=== PATIENT | female | born 1990 | race Caucasian/White ===

== ENCOUNTER 2017-03-01 06:52 | Inpatient (IN) | payer OTHER ==
[2017-03-01] MEDS ORDERED: Sodium Citrate/Citric Acid 15 ml Sol PO ONE (08:13)
[2017-03-01 08:15] LABS: BASO # 0.1 K/uL (0.0-0.2); BASO % 0.5 % (0.0-2.0); EOS # 0.1 K/uL (0.0-0.7); EOS % 0.6 % (0.0-4.0); HEMOGLOBIN 10.5 g/dL (11.0-16.0); LYMPH # 3.1 K/uL (1.0-4.3); LYMPH % 31.3 % (20.0-40.0); MEAN CORPUSCULAR HEMOGLOBIN 29.9 pg (27.0-31.0); MEAN CORPUSCULAR HGB CONC 32.6 g/dL (33.0-37.0); MEAN PLATELET VOLUME 9.5 fL (7.2-11.7); MONO # 1.3 K/uL (0.0-0.8); MONO % 13.1 % (0.0-10.0); NEUT # 5.4 K/uL (1.8-7.0); NEUT % 54.5 % (50.0-75.0); NRBC % 0.1 % (0.0-2.0); RBC 3.51 Mil/uL (3.80-5.20); RED CELL DISTRIBUTION WIDTH 13.4 % (11.5-14.5)
[2017-03-01] MEDS ORDERED: Oxytocin 20 units in LR 2,000 ML IV ONE (08:18)
[2017-03-01 08:19] LABS: SQUAMOUS EPITHIAL 33 /hpf (0-5); URINE BACTERIA OCC (<OCC); URINE BILIRUBIN NEGATIVE (NEGATIVE); URINE BLOOD NEGATIVE (NEGATIVE); URINE CLARITY Hazy (Clear); URINE COLOR Yellow (YELLOW); URINE GLUCOSE (UA) NORMAL (Normal); URINE LEUKOCYTE ESTERASE 3+ Leu/uL (Negative); URINE NITRATE NEGATIVE (NEGATIVE); URINE PROTEIN NEGATIVE (NEGATIVE); URINE UROBILINOGEN NORMAL mg/dL (0.2-1.0)
[2017-03-01] MEDS: Lactated Ringer's 1,000 ML IV SCH ×2 (08:27→17:00)
[2017-03-01 08:45] LABS: ALBUMIN 3.2 g/dL (3.5-5.0)
[2017-03-01 08:48] LABS: AST/SGOT 39 U/L (14-36); BLOOD UREA NITROGEN 7 mg/dL (7-17); GFR AFRICAN-AMERICAN > 60; GFR NON-AFRICAN AMERICAN > 60
[2017-03-01 08:49] LABS: ALT/SGPT 36 U/L (9-52)
[2017-03-01] MEDS ORDERED: Morphine 1 mg/ml preservative-free Inj(Duramorph) ONE (08:57)
[2017-03-01 08:59] LABS: BARBITURATES, UR NEGATIVE (NEGATIVE)
[2017-03-01 09:00] LABS: BENZODIAZEPINES, UR NEGATIVE (NEGATIVE)
[2017-03-01 09:04] LABS: OPIATES, UR NEGATIVE (NEGATIVE)
[2017-03-01 09:05] LABS: PHENCYCLIDINE, UR NEGATIVE (NEGATIVE)
[2017-03-01] MEDS ORDERED: Phenylephrine 10 mg/ml Inj ONE (09:24)
[2017-03-01] MEDS ORDERED: ePHEDrine 50 mg/ml Inj ONE (09:24)
[2017-03-01] MEDS ORDERED: DiphenhydrAMINE 50 mg/ml Inj IVP PRN (09:51)
[2017-03-01] MEDS ORDERED: Oxycodone/Acetaminophen 5/325 mg Tab PO PRN (10:32)
[2017-03-01] MEDS: Simethicone 80 mg Chewtab PO SCH ×2 (17:33→22:40)
[2017-03-02] MEDS: Lactated Ringer's 1,000 ML IV SCH (01:12)
--- NOTE | 2017-03-02 05:15 | OBDS ---
DELIVERY PERSONNEL Delivery Doctor: Yael Bustillo MD Scrub Nurse: Chetna Whitfield Instrument Adjuster: Marilyn Fuller RN Anesthesiologist: sanjeev MATERNAL INFORMATION Delivery Anesthesia: Spinal Medications in Delivery: pitocin 20 Estimated Blood Loss (ml): 800 Placenta Cultured: Yes Maternal Complications: None Provider Comments: repeat csection done ebl 800cc viable male .apgars 9/9 at 1 and 5 min of life LABOR SUMMARY EDC: 03/07/2017 00:00 No. Babies in Womb: 1 Attempted: No Labor Anesthesia: None LABOR INFORMATION Reason for Induction: Not Applicable Oxytocin: N/A Group B Beta Strep: Negative Antibiotics # of Doses: 2 Antibiotics Time of Last Dose: 840 Steroids Given: None Reason Steroids Not Administered: Not Applicable MEMBRANES Membranes Rupture Method: Artificial Rupture of Membranes: 03/01/2017 09:32 Length of Rupture (hrs): 0.02 Amniotic Fluid Color: Clear Amniotic Fluid Amount: Moderate Amniotic Fluid Odor: Normal STAGES OF LABOR Stage 3 hrs: 0 Stage 3 min: 1 VAGINAL DELIVERY Episiotomy: None Laceration Extension: N/A Laceration Type: None CSECTION DELIVERY Primary Indication: Repeat Elective Secondary Indication: N/A CSection Urgency: Elective CSection Incidence: Repeat Labor: No Labor Elective: Elective CSection Incision: Lower Uterine Transverse Uterine Closure: Double-layer closure BABY A INFORMATION Infant Delivery Date/Time: 03/01/2017 09:33 Method of Delivery: Born in Route : No : N/A Forceps: N/A Vacuum Extraction: N/A Shoulder Dystocia : No SHOULDER DYSTOCIA BABY A Infant Delivery Date/Time: 03/01/2017 09:33 PRESENTATION/POSITION BABY A Presentation: Cephalic Cephalic Presentation: Vertex Breech Presentation: N/A PLACENTA INFORMATION BABY A Placenta Delivery Time : 03/01/2017 09:34 Placenta Method of Delivery: Manual Removal Placenta Status: Delivered SCORES BABY A Heart Rate 1 min: >100 bpm Resp Effort 1 min: Good Cry Reflex Irritability 1 min: Cough or Sneeze or Pulls Away Muscle Tone 1 min: Active Motion Color 1 min: Body [place], Extremities Blue Resuscitation Effort 1 min: Tactile Stimulation SCORE 1 MIN: 9 Heart Rate 5 min: >100 bpm Resp Effort 5 min: Good Cry Reflex Irritability 5 min: Cough or Sneeze or Pulls Away Muscle Tone 5 min: Active Motion Color 5 min: Body [place], Extremities Blue SCORE 5 MIN: 9 INFANT INFORMATION BABY A Gestational Age at Delivery: 39.0 Gestational Status: Term Outcome : Liveborn Infant Condition : Stable Infant Sex: Male IDENTIFICATION/MEDS BABY A ID Band Number: [id number] ID Band Location: Left Leg; Left Arm Sensor Applied: Yes Sensor Number: [id number] Sensor Location : Cord Clamp WEIGHT/LENGTH BABY A Infant Birthweight (gms): 3320 Infant Weight (lb): 7 Weight (oz): 5 Infant Length Inches: 19.75 Infant Length cms: 50.2 CORD INFORMATION BABY A No. Cord Vessels: 3 Nuchal Cord : N/A Cord Blood Taken: Yes Infant Suction: Mouth; Nose ASSESSMENT BABY A Complications: None Physical Findings at Delivery: Within Normal Limits Respirations: Appears Normal Products Mechanical Design Engineer/ALS Called : No Care By: dr esteves Transferred To: Remains with Mother
[2017-03-02] MEDS: Oxycodone/Acetaminophen 5/325 mg Tab PO PRN ×5 (06:45→20:25)
[2017-03-02 08:11] LABS: BASO # 0.1 K/uL (0.0-0.2); BASO % 0.7 % (0.0-2.0); EOS # 0.1 K/uL (0.0-0.7); EOS % 0.5 % (0.0-4.0); HEMOGLOBIN 9.6 g/dL (11.0-16.0); LYMPH # 2.1 K/uL (1.0-4.3); LYMPH % 15.2 % (20.0-40.0); MEAN CELL VOLUME 91.6 fL (81.0-99.0); MEAN CORPUSCULAR HEMOGLOBIN 29.7 pg (27.0-31.0); MEAN CORPUSCULAR HGB CONC 32.4 g/dL (33.0-37.0); MEAN PLATELET VOLUME 8.8 fL (7.2-11.7); MONO # 1.9 K/uL (0.0-0.8); MONO % 13.4 % (0.0-10.0); NEUT # 9.8 K/uL (1.8-7.0); NEUT % 70.2 % (50.0-75.0); NRBC % 0.1 % (0.0-2.0); RBC 3.23 Mil/uL (3.80-5.20); RED CELL DISTRIBUTION WIDTH 13.4 % (11.5-14.5); WHITE BLOOD COUNT 13.9 K/uL (4.8-10.8)
[2017-03-02] MEDS: Prenatal Multivit/Folic Acid/Iron Tab PO SCH (09:58)
[2017-03-02] MEDS: Simethicone 80 mg Chewtab PO SCH ×4 (09:58→21:55)
--- NOTE | 2017-03-02 14:49 | OP ---
PROCEDURE DATE: 03/01/2017 PREOPERATIVE DIAGNOSES: In term intrauterine , previous infection, trial of labor. POSTOPERATIVE DIAGNOSES: In term intrauterine , previous section, trial of labor. SURGEON: Keshawn Bustillo MD ICT EDUCATOR: Fuentes Farris MD. Please note that the procedure required a surgical tech to assist with entry into the abdominal cavity, to assist with the delivery of the , and also to assist with closure of the abdominal wall. The surgical tech was present and scrubbed for the entire duration of the procedure. PROCEDURE PERFORMED: Repeat low transverse section. ANESTHESIA: Spinal. ANESTHESIOLOGIST: Dr. Llamas. COMPLICATIONS: None. ESTIMATED BLOOD LOSS: 800 mL FINDINGS: Viable male infant in a vertex presentation with Apgars of 9 at 1 minute and 9 at 5 minutes. Normal appearing tubes and ovaries bilaterally. Lesions within the omentum and the anterior wall of the uterus were noted. SPECIMENS: Placenta and cord blood. PROCEDURE IN DETAIL: After informed consent was obtained, the patient was taken to the operating room and spinal anesthesia was administered by the Anesthesia Team. She was thereafter placed in dorsal supine position with a leftward tilt. A Vasquez catheter was placed transurethrally using sterile precaution. She was then prepped and draped in the usual sterile manner. In the previous scar, incision was made and incision was carried down to the underlying layer of the fascia with the help of the Bovie. The fascia was then incised in the midline. The incision was extended laterally with the help of Bovie as well. The superior aspect of the fascial incision was then grasped with David clamps, elevated, and the underlying rectus muscles were dissected off. Attention was then turned to the inferior aspect of the fascial incision, which in a similar fashion was grasped with David clamp, elevated, and the underlying rectus muscles dissected off. The rectus muscles were then tented up, lifted up in the midline with the help of Allis clamps and sharply with the help of the scalpel. The peritoneum was also picked up with hemostatic clamps and entered sharply. The peritoneal incision was then extended superiorly and inferiorly with good visualization of the bladder. The bladder blade was inserted and the vesicouterine peritoneum was identified. A transverse incision was made over the vesicouterine peritoneum and this incision was extended laterally sharply as well. The live baby within the incision over the uterine segment identified. A transverse incision was made over the lower uterine segment with the help of a scalpel. The hysterotomy was then also stretched bluntly. The membranes were then ruptured and clear amniotic fluid was noted. The head was delivered followed by the body and shoulders. The nose and mouth were suctioned and the cord was then clamped and cut. The infant was then handed over to the waiting middleware developer. The placenta was then manually removed. The uterus was exteriorized and cleared of all clots and debris. Uterine incision was repaired with 0 Polysorb in a running locked fashion. Second layer of same suture was used to imbricate the first layer and also to obtain hemostasis. Adequate hemostasis was noted at the uterine incision repair site. Adhesions between the omentum and the anterior abdominal wall of the uterus were noted. These were doubly clamped then cut *------* and then suture ligated. Adequate hemostasis was noted from the cut edges of the omentum. The pelvis and gutters were irrigated and suctioned. The uterus was returned to the patient's abdomen and the hysterotomy was inspected for hemostasis. Again, bleeding was noted on the mid section of the hysterotomy repair, and then this was suture ligated with 0 Monocryl with [id number] sutures. Adequate hemostasis was noted from the uterine incision repair site. The bladder flap was inspected for hemostasis, and adequate hemostasis was noted from it as well. The peritoneum was therefore closed with 2-0 Polysorb in running fashion. The muscle area was also re-approximated with 2-0 Polysorb in running fashion. The fascia was closed with 0-Vicryl in a running fashion. The subcutaneous tissue was re-approximated with 2-0 Polysorb in running fashion. The skin was then closed with lou. Sponge, lap, needle, and instrument counts were correct at the end of the procedure as reported to me. The Vasquez catheter was left in situ for postop bladder drainage. The patient was cleaned, dressing was applied, and taken to the recovery room in stable condition. Keshawn Bustillo MD
--- NOTE | 2017-03-02 15:42 | OBPPN ---
Datetime: 03/02/2017 15:31 PP Pain Prov: Within normal limits PP Nausea Prov: Denies PP Flatus Prov: No PP BM Prov: No PP Breasts Prov: Normal PP Heart Prov: Normal PP Lungs Prov: Normal PP Abdomen/Uterus Prov: Normal PP Lochia Prov: Normal PP Vulva/Perineum Prov: Not Done PP CVA Tenderness Prov: Normal PP Extremities Prov: Normal PP C/S Incision Prov: Normal PP Progress Prov: Normal PP Comments Phys Exam Prov: Abdomen: Obese. (+) BS. Fundus firm, appropriately tender at umbilicus, mobile. Dressing - clean and dry. Mild lochia rubra Extremities: no calf tenderness All other systems reviewed and are negative PP Impression Prov: Normal progression PP Plan Prov: Continue present management PP Progress Note Prov: Patient received in room 451, at sink, brushing her teeth; ambulated to bed. (+) Breast- and bottlefeeidng. Denies nausea, vomiting; (+) hungry. Denies dizziness, lighteheadedne ss. Pain scale in incision 8/10 - relieved by percocot P.E.: as above. Obese, in NAD. Awake, alert, oriented to time, person and place. Pleasant and coop erative - POD#1 H/H 9.6/ 29.6. RH (+) Assessment: POD#1, 26 yo P2, S/P repeat C/S. Afebrile, vital signs stable. Chronic anemia - asymt omatic and hemodynamically stable. Returning GI and functions. Drug screen (+) cannibinoids; Socia l work consult has been placed. Clincally stable. Plan: 1) Encourage ambulation in hallway 2) Advance to regualr diet 3) Continue present management 3) Vital Signs Provider PP: Reviewed; Within Normal Limits
--- NOTE | 2017-03-02 15:47 | OBPPN ---
Datetime: 03/02/2017 15:31 PP Progress Note Prov: Patient received in room 451, at approximately 0740 hours - at sink, brushing her teeth; ambulated to bed. (+) Breast- and bottlefeeding. Denies nausea, vomiting; (+) hungry. De nies dizziness, lightheadedness. Pain scale in incision 8/10 - relieved by percocet P.E.: as above. Obese, in NAD. Awake, alert, oriented to time, person and place. Pleasant and coop erative - POD#1 H/H 9.6/ 29.6. RH (+) Assessment: POD#1, 26 yo P2, S/P repeat C/S. Afebrile, vital signs stable. Chronic anemia - asymt omatic and hemodynamically stable. Returning GI and functions. Drug screen (+) cannibinoids; Socia l work consult has been placed. Clincally stable. Plan: 1) Encourage ambulation in hallway 2) Advance to regualr diet 3) Continue present management
[2017-03-03] MEDS: Oxycodone/Acetaminophen 5/325 mg Tab PO PRN ×3 (00:18→17:17)
--- NOTE | 2017-03-03 07:24 | OBPPN ---
Datetime: 03/03/2017 07:20 PP Pain Prov: Within normal limits PP Nausea Prov: Denies PP Flatus Prov: Yes PP Abdomen/Uterus Prov: Normal PP Lochia Prov: Normal PP Extremities Prov: Normal PP C/S Incision Prov: Normal PP Comments Phys Exam Prov: fudus below um ext mild edema,no calf ten incision clean and dry PP Impression Prov: Normal progression PP Plan Prov: Continue present management PP Progress Note Prov: pt was seen at bed side, pain under control, no n/v, tolerating deit,voiding, min lochia, flatus + pod#2 s/p c/s cbc reg deit pain management cont post op care encourage ambulation care Vital Signs Provider PP: Reviewed; Within Normal Limits
[2017-03-03] MEDS: Prenatal Multivit/Folic Acid/Iron Tab PO SCH (09:18)
[2017-03-03] MEDS: Simethicone 80 mg Chewtab PO SCH ×5 (09:19→21:56)
[2017-03-03] MEDS ORDERED: Hydrocortisone 1% Cream (30 GM) TOP PRN ×2 (11:12→11:14)
[2017-03-04] MEDS ORDERED: Hydrocortisone 1% Cream (30 GM) TOP PRN (01:57)
[2017-03-04 08:04] VITALS: BP 129/79; PULSE 88; RESP 18; TEMP 98.9; O2SAT 97
--- NOTE | 2017-03-04 08:46 | CP.PCM.DIS ---
Provider - Provider Date of Admission: 03/01/17 07:15 Attending physician: Keshawn Bustillo MD Time Spent in preparation of Discharge (in minutes): 45 Hospital Course - Lab Results Lab Results: Most Recent Lab Values WBC 13.9 K/uL (4.8-10.8) H 03/02/17 08:03 RBC 3.23 Mil/uL (3.80-5.20) L 03/02/17 08:03 Hgb 9.6 g/dL (11.0-16.0) L 03/02/17 08:03 Hct 29.6 % (34.0-47.0) L 03/02/17 08:03 MCV 91.6 fL (81.0-99.0) 03/02/17 08:03 MCH 29.7 pg (27.0-31.0) 03/02/17 08:03 MCHC 32.4 g/dL (33.0-37.0) L 03/02/17 08:03 RDW 13.4 % (11.5-14.5) 03/02/17 08:03 Plt Count 182 K/uL (130-400) 03/02/17 08:03 MPV 8.8 fL (7.2-11.7) 03/02/17 08:03 Neut % (Auto) 70.2 % (50.0-75.0) 03/02/17 08:03 Lymph % (Auto) 15.2 % (20.0-40.0) L 03/02/17 08:03 [place] % (Auto) 13.4 % (0.0-10.0) H 03/02/17 08:03 Eos % (Auto) 0.5 % (0.0-4.0) 03/02/17 08:03 Baso % (Auto) 0.7 % (0.0-2.0) 03/02/17 08:03 Neut # 9.8 K/uL (1.8-7.0) H 03/02/17 08:03 Lymph # 2.1 K/uL (1.0-4.3) 03/02/17 08:03 [place] # 1.9 K/uL (0.0-0.8) H 03/02/17 08:03 Eos # 0.1 K/uL (0.0-0.7) 03/02/17 08:03 Baso # 0.1 K/uL (0.0-0.2) 03/02/17 08:03 Sodium 135 mmol/L (132-148) 03/01/17 08:07 Potassium 3.9 mmol/L (3.6-5.2) 03/01/17 08:07 Chloride 101 mmol/L (98-107) 03/01/17 08:07 Carbon Dioxide 22 mmol/L (22-30) 03/01/17 08:07 Anion Gap 16 (10-20) 03/01/17 08:07 BUN 7 mg/dL (7-17) 03/01/17 08:07 Creatinine 0.6 MG/DL (0.7-1.2) L 03/01/17 08:07 Est GFR ( Amer) > 60 03/01/17 08:07 Est GFR (Non-Af Amer) > 60 03/01/17 08:07 Random Glucose 69 mg/dL (65-105) 03/01/17 08:07 Calcium 9.0 mg/dl (8.6-10.4) 03/01/17 08:07 Total Bilirubin 0.7 mg/dL (0.2-1.3) 03/01/17 08:07 AST 39 U/L (14-36) H 03/01/17 08:07 ALT 36 U/L (9-52) 03/01/17 08:07 Alkaline Phosphatase 147 U/L (38-126) H 03/01/17 08:07 Total Protein 6.4 g/dL (6.3-8.3) 03/01/17 08:07 Albumin 3.2 g/dL (3.5-5.0) L 03/01/17 08:07 Globulin 3.3 gm/dL (2.2-3.9) 03/01/17 08:07 Albumin/Globulin Ratio 1.0 (1.0-2.1) 03/01/17 08:07 Urine Color Yellow (YELLOW) 03/01/17 08:07 Urine Clarity Hazy (Clear) 03/01/17 08:07 Urine pH 7.0 (5.0-8.0) 03/01/17 08:07 Ur Specific [place] 1.013 (1.003-1.030) 03/01/17 08:07 Urine Protein Negative mg/dL (NEGATIVE) 03/01/17 08:07 Urine Glucose (UA) Normal mg/dL (Normal) 03/01/17 08:07 Urine Ketones 1+ mg/dL (NEGATIVE) H 03/01/17 08:07 Urine Blood Negative (NEGATIVE) 03/01/17 08:07 Urine Nitrate Negative (NEGATIVE) 03/01/17 08:07 Urine Bilirubin Negative (NEGATIVE) 03/01/17 08:07 Urine Urobilinogen Normal mg/dL (0.2-1.0) 03/01/17 08:07 Ur Leukocyte Esterase 3+ Ben/uL (Negative) H 03/01/17 08:07 Urine WBC (Auto) 8 /hpf (0-5) H 03/01/17 08:07 Urine RBC (Auto) 3 /hpf (0-3) 03/01/17 08:07 Ur Squamous Epith Cells 33 /hpf (0-5) H 03/01/17 08:07 Urine Bacteria Occ (<OCC) H 03/01/17 08:07 Urine Opiates Screen Negative (NEGATIVE) 03/01/17 08:40 Urine Methadone Screen Negative (NEGATIVE) 03/01/17 08:40 Ur Barbiturates Screen Negative (NEGATIVE) 03/01/17 08:40 Ur Phencyclidine Scrn Negative (NEGATIVE) 03/01/17 08:40 Ur Amphetamines Screen Negative (NEGATIVE) 03/01/17 08:40 U Benzodiazepines Scrn Negative (NEGATIVE) 03/01/17 08:40 U Oth Cocaine Metabols Negative (NEGATIVE) 03/01/17 08:40 U Cannabinoids Screen Positive (NEGATIVE) 03/01/17 08:40 RPR Nonreactive (NONREACTIVE) 03/01/17 08:07 HIV 1&2 Antibody Screen Negative (NEGATIVE) 03/01/17 08:07 Blood Type A POSITIVE 03/01/17 08:07 Antibody Screen Negative 03/01/17 08:07 Discharge Plan - Follow Up Plan Condition: GOOD Disposition: HOME/ ROUTINE
--- NOTE | 2017-03-04 08:50 | OBPPN ---
Datetime: 03/04/2017 08:47 PP Pain Prov: Within normal limits PP Nausea Prov: Denies PP Flatus Prov: Yes PP Breasts Prov: Normal PP Heart Prov: Normal PP Lungs Prov: Normal PP Abdomen/Uterus Prov: Normal PP Lochia Prov: Normal PP Vulva/Perineum Prov: Normal PP CVA Tenderness Prov: Normal PP Extremities Prov: Normal PP C/S Incision Prov: Normal PP Progress Prov: Normal PP Comments Phys Exam Prov: Abd: Soft, NT, BS- present Ut- Firm. Incision: Clean and dry PP Impression Prov: Normal progression PP Plan Prov: Discharge PP Progress Note Prov: S/P Section, POD #3 Clinically Stable. Plan: D/C Home Vital Signs Provider PP: Reviewed
--- NOTE | 2017-03-04 08:58 | OBDCSUM ---
Datetime: 03/04/2017 08:55 Discharged to, Provider: Home Follow up at, Provider[facility] Disch Instr Activity: Normal activity Disch Instr Diet: Regular Discharge Instructions, Provider: Routine instructions given Discharge Diagnosis, Provider: Term Delivered Discharge Time: 03/04/2017 08:55 Follow up in weeks, Provider: 1 week Disch Referrals: None Contraception discussed, Prov: Yes Discharge Comment, Provider: S/P Section, Clinically Stable Discharge Diagnosis Prov Other: S/P Section, Clinically Stable
[2017-03-04] MEDS: Prenatal Multivit/Folic Acid/Iron Tab PO SCH (09:55)
== END 2017-03-04 15:40 | disposition home or self-care (01) | DRG 370 ==
LOC: UNDOADMIN 06:52 → C.4D 06:52 → EEVIPCON 07:15 → C.4D 07:15 → C.4M 12:07
PROVIDERS: ADMIT Student in an Organized Health Care Education/Training Program; ATTEND Student in an Organized Health Care Education/Training Program
PROC: 10D00Z1 Extraction of Products of Conception, Low, Open Approach (ICD-10-PCS; principal; 2017-03-01)
PROC: 10907ZC Drainage of Amniotic Fluid, Therapeutic from Products of Conception, Via Natural or Artificial Opening (ICD-10-PCS; 2017-03-01)
DX: O34.211 Maternal care for low transverse scar from previous cesarean delivery (principal); O99.02 Anemia complicating childbirth; O99.323 Drug use complicating pregnancy, third trimester; O99.214 Obesity complicating childbirth; K66.0 Peritoneal adhesions (postprocedural) (postinfection); F12.10 Cannabis abuse, uncomplicated; Z37.0 Single live birth; Z3A.39 39 weeks gestation of pregnancy; D64.9 Anemia, unspecified